=== PATIENT | female | born 1990 | race Caucasian/White ===

== ENCOUNTER 2022-02-12 18:09 | Emergency (ER) | payer MEDICAID ==
[~2022-02-12] VITALS: Ht 170.2 cm; Wt 82.0 kg
[2022-02-12 18:53] LABS: BASOPHILS % 0.3 % (0.0-2.0); EOSINOPHILS % 0.6 % (0.0-5.0); HEMATOCRIT. 39.2 % (36.0-48.0); HEMOGLOBIN. 13.1 g/dL (12.0-16.0); LYMPHOCYTES % 16.1 % (20.0-50.0); MEAN CORPUSCULAR HEMOGLOBIN 27.2 pg (28.0-32.0); MEAN CORPUSCULAR VOLUME 81.3 fL (81.0-99.0); MEAN PLATELET VOLUME 8.6 fl (7.4-10.4); MONOCYTES % 7.5 % (2.0-8.0); NEUTROPHILS % 75.5 % (40.0-76.0); PLATELET 251 x1000/uL (130-400); RED BLOOD CELL COUNT 4.82 mill/uL (4.2-5.4); RED CELL DISTRIBUTION WIDTH 14.1 % (11.6-14.6)
[2022-02-12 19:00] LABS: CHLORIDE 114 mEq/L (98-107)
[2022-02-12 19:02] LABS: INR 1.1; PROTHROMBIN TIME 11.3 sec (9.6-11.0)
[2022-02-12 19:08] LABS: ETHANOL BLOOD < 10 mg/dL
[2022-02-12 19:18] LABS: HCG SCREEN NEGATIVE
[2022-02-12 21:37] LABS: CLARITY URINE CLOUDY (CLEAR); COLOR URINE ORANGE (YELLOW); KETONES URINE TRACE (NEGATIVE); LEUKOCYTE ESTERASE URINE 1+ (NEGATIVE); NITRITE URINE NEGATIVE (NEGATIVE); OCCULT BLOOD URINE 3+ (NEGATIVE); PH URINE 7.5 (4.5-8.0); PROTEIN URINE 1+ (NEGATIVE); SPECIFIC GRAVITY URINE 1.029 (1.005-1.030)
[2022-02-12 21:47] LABS: *AMPHETAMINES SCREEN URINE NEGATIVE (NEGATIVE); *BARBITURATES SCREEN URINE NEGATIVE (NEGATIVE); *BENZODIAZEPINES SCREEN URINE NEGATIVE (NEGATIVE); *COCAINE SCREEN URINE NEGATIVE (NEGATIVE); METHADONE URINE SCREEN NEGATIVE (NEGATIVE); OPIATES URINE SCREEN NEGATIVE (NEGATIVE); PHENCYCLIDINE URINE SCREEN NEGATIVE (NEGATIVE)
[2022-02-12 21:52] LABS: CANNABINOID URINE SCREEN PRESUMTIVE POSITIVE (NEGATIVE)
[2022-02-12] MEDS ORDERED: IOHEXOL-350 100 ML BOTTLE ONE (22:17)
[2022-02-13] MEDS ORDERED: MAGNESIUM 1 G PREMIX 100 ML IV ONE
[2022-02-14 15:31] VITALS: BP 133/81
== END 2022-02-14 15:40 ==
LOC: ER 18:09
DX: R45.851 Suicidal ideations (principal); Z20.822 Contact with and (suspected) exposure to COVID-19
CPT/HCPCS: 36415; 70498; 80053; 80305; 80307; 80320; 80329; 81003; 83735; 84703; 85025; 85610; 86850; 86900; 86901; 93005; 99285; C9803; Q9967; U0003; U0005; G0480